=== PATIENT | female | born 1940 | race Caucasian/White ===

== ENCOUNTER 2017-08-23 08:26 | Day surgery (SDC) | payer MEDICARE, MEDICAID ==
[2017-08-23] VITALS (18 sets, daily range): BP systolic 116–168; BP diastolic 45–74
[~2017-08-23] VITALS: Ht 170.2 cm; Wt 101.1 kg
[2017-08-23] MEDS ORDERED: normal saline 1000ml 1,000 ML IV PRN (08:55)
[2017-08-23 09:33] LABS: BASOPHILS # (AUTO) 0.1 X10'3 (0-0.2); BASOPHILS % (AUTO) 0.7 % (0-1); EOSINOPHILS # (AUTO) 1.3 X10'3 (0-0.9); HEMATOCRIT 38.2 % (35.0-45.0); LYMPHOCYTES # (AUTO) 2.4 X10'3 (1.1-4.8); LYMPHOCYTES % (AUTO) 32.8 % (21-51); MEAN CORPUSCULAR HEMOGLOBIN 30.8 PG (27.0-31.0); MEAN CORPUSCULAR HGB CONC 34.2 % (33.0-36.5); MEAN CORPUSCULAR VOLUME 90.1 FL (78-98); MEAN PLATELET VOLUME 8.8 FL (7.4-10.4); MONOCYTES # (AUTO) 0.5 X10'3 (0-0.9); NEUTROPHILS % (AUTO) 41.5 % (42-75); PLATELET COUNT 155 X10'3 (140-440); RED BLOOD COUNT 4.24 X10'6 (4.20-5.60); RED CELL DISTRIBUTION WIDTH 14.5 % (11.5-14.5); WHITE BLOOD COUNT 7.3 X10'3 (4.5-11.0)
[2017-08-23] MEDS ORDERED: OXYC10TA47 PO (09:46)
[2017-08-23] MEDS ORDERED: TRAZ-143 PO (09:46)
[2017-08-23] MEDS ORDERED: PREG150C PO (09:46)
[2017-08-23] MEDS ORDERED: POTA10TA15 PO (09:46)
[2017-08-23] MEDS ORDERED: ROSU10TA PO (09:46)
[2017-08-23] MEDS ORDERED: cinnamon PO (09:46)
[2017-08-23] MEDS ORDERED: FURO-150 PO (09:46)
[2017-08-23] MEDS ORDERED: LANTUS SQ (09:46)
[2017-08-23] MEDS ORDERED: OXYC30TA85 PO (09:46)
[2017-08-23] MEDS ORDERED: ASPI-1053 PO (09:46)
[2017-08-23] MEDS ORDERED: ZAFI20TA14 PO (09:46)
[2017-08-23] MEDS ORDERED: INSU100C10 SQ (09:46)
[2017-08-23] MEDS ORDERED: colace PO (09:46)
[2017-08-23] MEDS ORDERED: CYCL-1 PO (09:46)
[2017-08-23] MEDS ORDERED: LORA1TAB PO (09:46)
[2017-08-23] MEDS ORDERED: METOPROLOL SUCC PEG (09:46)
[2017-08-23] MEDS ORDERED: SACU1TAB4 PO (09:46)
[2017-08-23] MEDS ORDERED: FISH1CAP15 PO (09:46)
[2017-08-23] MEDS ORDERED: CLOP75TA33 PO (09:46)
[2017-08-23] MEDS ORDERED: PANT-47 PO (09:46)
[2017-08-23] MEDS ORDERED: ISOS30TA6 PO (09:46)
[2017-08-23] MEDS ORDERED: MULT-1085 PO (09:46)
[2017-08-23] MEDS ORDERED: LIDOcaine 1%/PF 5ML 10 MG/ML VIAL SQ ONE (09:55)
[2017-08-23] MEDS ORDERED: midazolam 2 mg/2 ml injection IV PRN (09:55)
[2017-08-23] MEDS ORDERED: fentaNYL/PF 50MCG/1 ML 2ML syringe IV PRN (09:55)
[2017-08-23] MEDS ORDERED: LIDOcaine 1%/PF 5ML 10 MG/ML VIAL ONE (10:07)
[2017-08-23] MEDS ORDERED: midazolam 2 mg/2 ml injection ONE (10:09)
[2017-08-23] MEDS ORDERED: fentaNYL/PF 50MCG/1 ML 2ML syringe ONE (10:09)
== END 2017-08-23 15:10 | disposition home or self-care (01) ==
LOC: SSTAY O 08:26
PROVIDERS: ATTEND Radiology Diagnostic Radiology
DX: C34.92 Malignant neoplasm of unspecified part of left bronchus or lung (principal); I25.10 Atherosclerotic heart disease of native coronary artery without angina pectoris; E11.9 Type 2 diabetes mellitus without complications; E78.00 Pure hypercholesterolemia, unspecified; K21.9 Gastro-esophageal reflux disease without esophagitis; I10 Essential (primary) hypertension; F17.210 Nicotine dependence, cigarettes, uncomplicated; J43.9 Emphysema, unspecified; M19.90 Unspecified osteoarthritis, unspecified site; F41.9 Anxiety disorder, unspecified; Z95.1 Presence of aortocoronary bypass graft; Z90.49 Acquired absence of other specified parts of digestive tract; Z90.710 Acquired absence of both cervix and uterus; Z86.74 Personal history of sudden cardiac arrest; Z95.5 Presence of coronary angioplasty implant and graft; Z98.41 Cataract extraction status, right eye; Z98.42 Cataract extraction status, left eye; Z79.891 Long term (current) use of opiate analgesic; Z88.0 Allergy status to penicillin; Z79.82 Long term (current) use of aspirin; Z79.4 Long term (current) use of insulin; Z79.899 Other long term (current) drug therapy; Z98.890 Other specified postprocedural states
CPT/HCPCS: 32405; 36415; 71045; 77012; 82948; 85025; 85610; 99152; 99153; J2001; J2250; J3010; J7030; 88173; 88305

== ENCOUNTER 2017-08-24 17:21 | Emergency (ER) | payer MEDICARE, MEDICAID ==
[~2017-08-24] VITALS: Ht 584.7 cm; Wt 103.0 kg
[~2017-08-24 17:21] MED LIST: ASPI-1053 PO; CLOP75TA33 PO; CYCL-1 PO; FISH1CAP15 PO; FURO-150 PO; INSU100C10 SQ; ISOS30TA6 PO; LANTUS SQ; LORA1TAB PO; METOPROLOL SUCC PEG; MULT-1085 PO; OXYC10TA47 PO; OXYC30TA85 PO; PANT-47 PO; POTA10TA15 PO; PREG150C PO; ROSU10TA PO; SACU1TAB4 PO; TRAZ-143 PO; ZAFI20TA14 PO; cinnamon PO; colace PO
[2017-08-24 17:58] LABS: BASOPHILS % (AUTO) 0.6 % (0-1); EOSINOPHILS % (AUTO) 15.9 % (0-6); HEMATOCRIT 31.9 % (35.0-45.0); HEMOGLOBIN 10.9 g/dl (12.0-16.0); LYMPHOCYTES % (AUTO) 32.5 % (21-51); MEAN CORPUSCULAR HEMOGLOBIN 30.8 PG (27.0-31.0); MEAN CORPUSCULAR HGB CONC 34.4 % (33.0-36.5); MEAN CORPUSCULAR VOLUME 89.7 FL (78-98); MEAN PLATELET VOLUME 8.1 FL (7.4-10.4); MONOCYTES # (AUTO) 0.5 X10'3 (0-0.9); MONOCYTES % (AUTO) 7.4 % (2-12); NEUTROPHILS # (AUTO) 2.7 X10'3 (1.8-7.7); NEUTROPHILS % (AUTO) 43.6 % (42-75); PLATELET COUNT 134 X10'3 (140-440); RED BLOOD COUNT 3.55 X10'6 (4.20-5.60); RED CELL DISTRIBUTION WIDTH 14.3 % (11.5-14.5); WHITE BLOOD COUNT 6.2 X10'3 (4.5-11.0)
[2017-08-24 18:15] LABS: ALANINE AMINOTRANSFERASE 17 U/L (12-78); ALBUMIN 2.6 G/DL (3.4-5.0); ALBUMIN/GLOBULIN RATIO 0.8 (1.1-1.5); ALKALINE PHOSPHATASE 49 IU/L (46-116); ANION GAP 2 (8-16); ASPARTATE AMINO TRANSFERASE 9 U/L (10-37); BILIRUBIN,TOTAL 0.2 MG/DL (0.1-1.0); BLOOD UREA NITROGEN 15 MG/DL (7-18); BUN/CREATININE RATIO 10.9 (6.6-38.0); CALCIUM 7.6 MG/DL (8.5-10.1); CHLORIDE 106 MMOL/L (99-107); CREATININE 1.37 MG/DL (0.40-0.90); GLUCOSE 126 MG/DL (70-104); POTASSIUM 3.8 MMOL/L (3.5-5.1); SODIUM 140 MMOL/L (135-145); TOTAL CARBON DIOXIDE 32.4 MMOL/L (24-32); eGFR 37 ML/MIN
[2017-08-24] MEDS ORDERED: morphine 4 MG/ML inj SYRINge IV ONE (18:45)
[2017-08-24 18:57] VITALS: BP 141/62
== END 2017-08-24 19:01 | disposition home or self-care (01) ==
LOC: ER 17:22
DX: R07.89 Other chest pain (principal); I25.10 Atherosclerotic heart disease of native coronary artery without angina pectoris; J44.9 Chronic obstructive pulmonary disease, unspecified; E11.9 Type 2 diabetes mellitus without complications; F17.200 Nicotine dependence, unspecified, uncomplicated; Z95.1 Presence of aortocoronary bypass graft; Z88.0 Allergy status to penicillin; Z79.82 Long term (current) use of aspirin; Z79.899 Other long term (current) drug therapy; Z79.4 Long term (current) use of insulin
CPT/HCPCS: 36415; 71045; 80053; 83880; 84484; 85025; 93005; 96374; 99285; J2270